=== PATIENT | female | born 1995 | race Caucasian/White ===

== ENCOUNTER 2019-01-16 11:58 | Outpatient (CLI) | payer MEDICAID ==
[2019-01-16] MEDS: LACTATED RINGER'S 1,000 ML IV (12:42)
== END 2019-01-16 13:05 | disposition home or self-care (01) ==
LOC: OBT 11:58 → L-D 11:58 → OBT 13:05
DX: O36.8130 Decreased fetal movements, third trimester, not applicable or unspecified (principal); Z3A.31 31 weeks gestation of pregnancy
CPT/HCPCS: 76818; 96360

== ENCOUNTER 2019-01-20 08:45 | Outpatient (CLI) | payer MEDICAID | END 2019-01-20 10:20 | disposition home or self-care (01) | LOC: OBT 08:45 → L-D 08:45 → OBT 10:20 | DX: O36.8130 Decreased fetal movements, third trimester, not applicable or unspecified (principal); Z3A.32 32 weeks gestation of pregnancy | CPT/HCPCS: 76818 ==

== ENCOUNTER 2019-03-05 11:33 | Outpatient (CLI) | payer MEDICAID ==
[2019-03-05 15:34] LABS: RUPTURE FETAL MEMBRANES NEGATIVE (NEGATIVE)
== END 2019-03-05 15:37 | disposition home or self-care (01) ==
LOC: OBT 11:33 → L-D 11:33 → OBT 15:37
DX: O41.93X0 Disorder of amniotic fluid and membranes, unspecified, third trimester, not applicable or unspecified (principal); Z3A.38 38 weeks gestation of pregnancy
CPT/HCPCS: 76815; 76818; 84112

== ENCOUNTER 2019-03-12 05:19 | Inpatient (IN) | payer MEDICAID ==
[2019-03-12] MEDS ORDERED: LIDOCAINE 1% (MPF) 30 ML INJ INJ (06:30)
[2019-03-12] MEDS ORDERED: MISOPROSTOL 200 MCG TAB PR (06:30)
[2019-03-12] MEDS ORDERED: OXYTOCIN 30 UNITS/LR 500 ML IV (06:30)
[2019-03-12] MEDS ORDERED: CARBOPROST 250 MCG INJ IM (06:30)
[2019-03-12] MEDS ORDERED: METHYLERGONOVINE 0.2 MG INJ IM (06:30)
[2019-03-12] MEDS ORDERED: BUTORPHANOL 2 MG INJ IV (06:30)
[2019-03-12] MEDS ORDERED: IBUPROFEN 600 MG TAB PO (06:30)
[2019-03-12 07:12] LABS: ADD MAN DIFF? NO
[2019-03-12 07:19] LABS: BASOPHILS % 0.4 % (0.0-2.0); EOSINOPHILS % 0.5 % (0.0-7.0); HEMATOCRIT 39.7 % (37.0-47.0); HEMOGLOBIN 13.4 g/dl (12.0-16.0); LYMPHOCYTES # 1.7 10^3/ul (0.8-2.9); LYMPHOCYTES % 20.8 % (15.0-51.0); MEAN CORPUSCULAR HEMOGLOBIN 29.9 pg (29.0-33.0); MEAN CORPUSCULAR HGB CONC 33.8 g/dl (32.0-37.0); MEAN CORPUSCULAR VOLUME 88.6 fl (82.0-101.0); MEAN PLATELET VOLUME 10.6 fl (7.4-10.4); MONOCYTE # 0.5 10^3/ul (0.3-0.9); MONOCYTES % 6.6 % (0.0-11.0); NEUTROPHIL # 5.9 10^3/ul (1.6-7.5); NEUTROPHILS % 71.5 % (39.0-77.0); PLATELET COUNT 195 10^3/UL (140-415); RED BLOOD COUNT 4.48 10^6/ul (4.20-5.40); RED CELL DISTRIBUTION WIDTH 12.9 % (11.5-14.5)
[2019-03-12 07:19] LABS: WHITE BLOOD COUNT 8.2 10^3/ul (4.8-10.8)
[2019-03-12 07:39] LABS: INR 0.89; PARTIAL THROMBOPLASTIN TIME 28.4 Sec (23.0-35.0); PROTIME 12.1 Sec (11.9-14.9); PT RATIO 0.9
[2019-03-12] MEDS: LACTATED RINGER'S 1,000 ML IV ×4 (07:41→21:20)
[2019-03-12] MEDS: MISOPROSTOL 50 MCG CAPSULE PO ×3 (08:08→16:01)
[2019-03-12 12:12] LABS: HEPATITIS B SURFACE ANTIGEN NEGATIVE (NEGATIVE)
[2019-03-12] MEDS ORDERED: DIPHENHYDRAMINE 50 MG INJ IV (14:30)
[2019-03-12] MEDS ORDERED: NALOXONE (0.4 MG/ML) INJ IV (14:30)
[2019-03-12] MEDS ORDERED: KETOROLAC 30 MG INJ IV (14:30)
[2019-03-12] MEDS ORDERED: HYDROmorphONE 0.5 MG/0.5 ML SYG IV ×2 (14:30)
[2019-03-12] MEDS ORDERED: ONDANSETRON 4 MG INJ IV (14:30)
[2019-03-12 15:03] LABS: RAPID PLASMA REAGIN NONREACTIVE (NR)
[2019-03-12] MEDS: OXYTOCIN 30 UNITS/LR 500 ML IV (17:00)
[2019-03-12] MEDS: FENTAnyl 2MCG/ML-ROPIV 0.2% 100 ML BAG EPI (23:24)
[2019-03-13] MEDS: OXYTOCIN 30 UNITS/LR 500 ML IV ×2 (01:00→01:01)
[2019-03-13 03:35] LABS: HEPATITIS C VIRAL ANTIBODY NEGATIVE (NEGATIVE)
[2019-03-13] MEDS ORDERED: METHYLERGONOVINE 0.2 MG INJ IM (04:00)
[2019-03-13] MEDS ORDERED: OXYTOCIN 30 UNITS/LR 500 ML IV (04:00)
[2019-03-13] MEDS ORDERED: ZOLPIDEM 5 MG TAB PO (04:00)
[2019-03-13] MEDS ORDERED: ONDANSETRON 4 MG INJ IV (04:00)
[2019-03-13] MEDS ORDERED: DIPHENHYDRAMINE 50 MG INJ IV (04:00)
[2019-03-13] MEDS ORDERED: MISOPROSTOL 200 MCG TAB PR (04:00)
[2019-03-13] MEDS ORDERED: SENNA/DOCUSATE NA (8.6MG/50MG) TAB PO (04:00)
[2019-03-13] MEDS ORDERED: ACETAMINOPHEN 325 MG TAB PO (04:00)
[2019-03-13] MEDS ORDERED: OXYCODONE/ASPIRIN (4.88/325) TAB PO (04:00)
[2019-03-13] MEDS ORDERED: DIBUCAINE 1% 30 GM OINT TOP (04:00)
[2019-03-13] MEDS ORDERED: MAGNESIUM HYDROXIDE 30ML CUP PO (04:00)
[2019-03-13] MEDS ORDERED: CARBOPROST 250 MCG INJ IM (04:00)
[2019-03-13] MEDS: IBUPROFEN 600 MG TAB PO ×4 (05:41→23:48)
[2019-03-13] MEDS: LACTATED RINGER'S 1,000 ML IV* (05:42)
[2019-03-13] MEDS: BENZOCAINE 20% 56 ML SPRAY TOP (05:42)
[2019-03-13] MEDS: WITCH HAZEL/GLYCERIN PAD PR (05:42)
[2019-03-13] MEDS: DEXTROSE 5%-LR 1,000 ML IV (06:38)
[2019-03-13] MEDS: MINERAL OIL LIGHT 10 ML VIAL TOP (06:38)
[2019-03-13 16:14] LABS: HIV 1&2 ANTIBODY NEGATIVE (NEGATIVE)
[2019-03-14] MEDS: IBUPROFEN 600 MG TAB PO ×3 (05:32→17:18)
[2019-03-14] MEDS: LANOLIN HPA 1 PKT TOP ×2 (07:47→07:49)
[2019-03-14] MEDS: BENZOCAINE 20% 56 ML SPRAY TOP (07:47)
[2019-03-14] MEDS: WITCH HAZEL/GLYCERIN PAD PR (07:47)
[2019-03-14 08:20] LABS: ADD MAN DIFF? NO
[2019-03-14 08:24] LABS: WHITE BLOOD COUNT 15.2 10^3/ul (4.8-10.8)
[2019-03-14 08:24] LABS: BASOPHILS % 0.3 % (0.0-2.0); EOSINOPHILS # 0.1 10^3/ul (0.0-0.5); EOSINOPHILS % 0.5 % (0.0-7.0); HEMATOCRIT 33.5 % (37.0-47.0); HEMOGLOBIN 11.4 g/dl (12.0-16.0); LYMPHOCYTES # 1.8 10^3/ul (0.8-2.9); LYMPHOCYTES % 12.1 % (15.0-51.0); MEAN CORPUSCULAR HEMOGLOBIN 30.7 pg (29.0-33.0); MEAN CORPUSCULAR VOLUME 90.3 fl (82.0-101.0); MEAN PLATELET VOLUME 10.5 fl (7.4-10.4); MONOCYTE # 0.8 10^3/ul (0.3-0.9); MONOCYTES % 5.2 % (0.0-11.0); NEUTROPHIL # 12.4 10^3/ul (1.6-7.5); NEUTROPHILS % 81.2 % (39.0-77.0); PLATELET COUNT 178 10^3/UL (140-415); RED BLOOD COUNT 3.71 10^6/ul (4.20-5.40); RED CELL DISTRIBUTION WIDTH 13.5 % (11.5-14.5)
[2019-03-15] MEDS: IBUPROFEN 600 MG TAB PO ×3 (00:15→12:27)
[2019-03-15] MEDS: DIPHTH/TET/ACEL PERTUSS (ADULT) 0.5 ML VIAL IM* (09:00)
[2019-03-15] MEDS: MEASLES,MUMPS,RUBELLA VACCINE INJ SC* (09:00)
== END 2019-03-15 14:20 | disposition home or self-care (01) | DRG 806 ==
LOC: OBT 05:19 → PP1 03-13 03:32 → L-D 05:19 → OBT 06:08 → L-D 06:08 → PP1 03-13 19:47 → L-D 06:47
PROVIDERS: Obstetrics & Gynecology
PROC: 10E0XZZ Delivery of Products of Conception, External Approach (ICD-10-PCS; principal; 2019-03-13)
PROC: 0UQGXZZ Repair Vagina, External Approach (ICD-10-PCS; 2019-03-13)
PROC: 3E033VJ Introduction of Other Hormone into Peripheral Vein, Percutaneous Approach (ICD-10-PCS; 2019-03-13)
DX: O69.81X0 Labor and delivery complicated by cord around neck, without compression, not applicable or unspecified (principal); O71.4 Obstetric high vaginal laceration alone; Z37.0 Single live birth; Z3A.39 39 weeks gestation of pregnancy
CPT/HCPCS: 62322; 76815; 76818; 85025; 85610; 85730; 86592; 86703; 86803; 86850; 86900; 86901; 87340; 88305; 99464